=== PATIENT | female | born 1990 | race Caucasian/White ===

== ENCOUNTER 2019-01-21 11:54 | Emergency (ER) | payer OTHER ==
[~2019-01-21] VITALS: Ht 172.7 cm; Wt 81.6 kg
--- NOTE | 2019-01-21 12:15 | NUR ---
Patient discharged to home in stable conditon. Written and verbal after care instructions given to patient. Patient verbalizes understanding of instructions.
== END 2019-01-21 12:16 | disposition home or self-care (01) ==
LOC: ER 11:54
DX: H60.91 Unspecified otitis externa, right ear (principal)
CPT/HCPCS: A4663